=== PATIENT | male | born 1930 | race Caucasian/White ===

== ENCOUNTER 2019-12-26 06:04 | Day surgery (SDC) | payer MEDICARE ==
[~2019-12-26] VITALS: Ht 180.3 cm; Wt 113.0 kg
[~2019-12-26 06:04] MED LIST: AMLO5 PO; ASCO1ER; ASPI81CH PO; ASPI81EC; ATOR10; ATOR20 PO; BIOTIN2500 MCG PO; C COMPLEX1000 M1 PO; ERGO400 PO; EUTHYROX50 MCG PO; FISH1000 PO; FOLI1 PO; GLIM2 PO; GLYB2.5 PO; HYDCHL25; HYDCHL25 PO; LISI20 PO; METF500 PO; METF850; METO25 PO; METO25ER PO; MULTI VITAMIN1 EACH PO; MULVITA; Vitamin C100 M1
--- NOTE | 2019-12-26 13:09 | NUR ---
PT AMB TO BATHROOM /C SBA. TOLERATED WELL. -BLEEDING OR SWELLING R GROIN. IV REMOVED.
--- NOTE | 2019-12-26 13:12 | NUR ---
PT AND VERBALIZED UNDERSTANDING OR WRITTEN AND VERBAL D/C INST. -BLEEDING OR SWELLING R GROIN AREA. PT TAKEN OUT OF THE HRT CENTER VIA W/C.
== END 2019-12-26 13:30 | disposition home or self-care (01) ==
LOC: MHTC 06:04
DX: E11.51 Type 2 diabetes mellitus with diabetic peripheral angiopathy without gangrene (principal); E11.621 Type 2 diabetes mellitus with foot ulcer; I70.245 Atherosclerosis of native arteries of left leg with ulceration of other part of foot; L97.528 Non-pressure chronic ulcer of other part of left foot with other specified severity; I12.9 Hypertensive chronic kidney disease with stage 1 through stage 4 chronic kidney disease, or unspecified chronic kidney disease; E11.22 Type 2 diabetes mellitus with diabetic chronic kidney disease; N18.9 Chronic kidney disease, unspecified; I65.22 Occlusion and stenosis of left carotid artery; E03.9 Hypothyroidism, unspecified; Z87.891 Personal history of nicotine dependence; Z79.84 Long term (current) use of oral hypoglycemic drugs; Z79.82 Long term (current) use of aspirin; Z79.899 Other long term (current) drug therapy; I70.211 Atherosclerosis of native arteries of extremities with intermittent claudication, right leg; I25.10 Atherosclerotic heart disease of native coronary artery without angina pectoris; Z95.1 Presence of aortocoronary bypass graft
CPT/HCPCS: 37232; 75625; 75716; 75774; 85347; 99152; 99153; C1714; C1725; C1760; C1769; C1887; C1894; C9766; J1644; J2250; J3010; J7030; J7050; Q9967

== ENCOUNTER → 2020-01-05 | Outpatient (CLI) | payer MEDICARE ==
[~2020-01-05] MED LIST changes: -ASPI81CH PO; -ATOR20 PO; +ATOR40TA PO; +Aspirin EC81 MG PO; +CIPR500 PO; +TAMS.4ER PO
[2020-01-05 13:01] LABS: BASOPHILS ABSOLUTE AUTO 0.03 K/mm3 (0.00-0.23); BASOPHILS PERCENT AUTO 0 % (0-2); EOSINOPHILS ABSOLUTE AUTO 0.04 K/mm3 (0.00-0.68); EOSINOPHILS PERCENT AUTO 0 % (0-6); Hematocrit 37.9 % (37.0-53.0); Hemoglobin 12.3 g/dL (13.5-17.5); IMMATURE GRAN ABSOLUTE AUTO 0.05 K/mm3 (0.00-0.10); IMMATURE GRAN PERCENT AUTO 1 % (0-1); LYMPHOCYTES ABSOLUTE AUTO 1.32 K/mm3 (0.84-5.20); LYMPHOCYTES PERCENT AUTO 12 % (21-46); MONOCYTES ABSOLUTE AUTO 0.67 K/mm3 (0.16-1.47); MONOCYTES PERCENT AUTO 6 % (4-13); Mean Corpuscular HGB 32.3 pg (26.0-34.0); Mean Corpuscular HGB Conc 32.5 g/dL (31.5-36.5); Mean Corpuscular Volume 100 fL (80-100); Mean Platelet Volume 9.7 fL (9.1-12.4); NEUTROPHILS ABSOLUTE AUTO 8.75 K/mm3 (1.96-9.15); NEUTROPHILS PERCENT AUTO 80 % (41-73); Platelet Count 213 K/mm3 (150-400); RDW Coefficient Variation 12.8 % (11.7-14.2); RDW Standard Deviation 46.9 fL (35.1-46.3); Red Blood Cell Count 3.81 M/mm3 (4.30-5.90); White Blood Cell Count 10.86 K/mm3 (4.00-11.30)
[2020-01-05 13:11] LABS: Albumin, Blood 3.7 g/dL (3.4-5.0); Albumin/Globulin Ratio 0.9 (0.8-1.8); Bilirubin, Total 0.5 mg/dL (0.1-1.0); Bun/Creatinine Ratio 11.6 (12.0-20.0); Calcium, Blood 9.1 mg/dL (8.5-10.1); Creatinine, Blood 2.68 mg/dL (0.60-1.20); Globulin, Blood 3.9 g/dL (2.2-4.0); Potassium, Blood 4.4 mmol/L (3.5-5.5); Total Protein, Blood 7.6 g/dL (6.4-8.2)
== END | disposition home or self-care (01) ==
LOC: LAB EV 12:56 → LAB SHORT 12:56
PROVIDERS: Chiropractor
DX: R33.9 Retention of urine, unspecified (principal)
CPT/HCPCS: 80053; 85025